=== PATIENT | male | born 1955 | race Caucasian/White ===

== ENCOUNTER → 2016-06-24 | Outpatient (CLI) | payer OTHER | LOC: RAD 11:04 | DX: M25.512 Pain in left shoulder (principal) ==

== ENCOUNTER 2018-01-30 10:18 | Emergency (ER) | payer OTHER ==
[~2018-01-30] VITALS: Ht 177.8 cm; Wt 93.0 kg
--- NOTE | ~2018-01-30 | EKG ---
[place] [address] [facility] [place] [employer] [address] ELECTROCARDIOGRAM REPORT Name: CATHERINE AMAYA Room #: [facility] Preeti#: [id number] Admission: 01/30/18 Attend Phys: Discharge: 01/30/18 Date of : 57 Report #: [id number] THIS REPORT FOR: //name// [facility] ED Test Date: 2018-01-30 Test Time: 10:28:42 Pat Name: CATHERINE AMAYA Department: Room: Gender: Qa Analyst: [facility] : 1955 Requested By: Chyna Steele Order Number: [id number] MD: Tc Figueroa Measurements Intervals [place] Rate: 60 P: 23 IL: 168 QRS: 13 QRSD: 149 T: 37 QT: 416 QTc: 416 Interpretive Statements Sinus rhythm Nonspecific st/t wave changes No previous ECG available for comparison Electronically Signed On 01-31-2018 23:26:36 CHIEF PROCUREMENT OFFICER by Tc Figueroa [email or web address] <ELECTRONICALLY SIGNED> By: Tc Figueroa MD 01/31/18 2326 [id number] 1028 Tc Figueroa MD /EPI
[2018-01-30 10:43] LABS: ABSOLUTE NEUTROPHILS 3.3 thou/uL (1.4-8.2); BASOPHILS 0.7 % (0.0-2.0); EOSINOPHILS 2.7 % (0.0-3.0); HEMATOCRIT 40.6 % (42.0-52.0); HEMOGLOBIN 13.3 gm/dL (14.0-18.0); LYMPHOCYTES 22.1 % (24.0-44.0); MCH 22.6 pg (26.0-34.0); MCHC 32.7 g/dL (28.0-37.0); MONOCYTES 7.8 % (1.0-8.0); PLATELET COUNT 153 thou/uL (150-400); POLYS 66.7 % (36.0-66.0); RBC 5.88 mil/uL (4.50-6.00); RDW 16.9 % (10.5-14.5); WBC 4.9 thou/uL (4.0-11.0)
[2018-01-30 10:51] LABS: ANION GAP 10 mmol/L (7-16); BUN 16 mg/dL (7-18); CALCIUM 9.2 mg/dL (8.5-10.1); CHLORIDE 106 mmol/L (98-107); CO2 25 mmol/L (21-32); GLUCOSE 128 mg/dL (74-106); POTASSIUM 4.1 mmol/L (3.5-5.1); SODIUM 141 mmol/L (136-145)
[2018-01-30] MEDS ORDERED: BYSTOLIC10 MG PO (10:53)
[2018-01-30] MEDS ORDERED: QUINAPRIL HCL40 MG PO (10:53)
[2018-01-30] MEDS ORDERED: FOLIC ACID1 MG PO (10:54)
[2018-01-30] MEDS ORDERED: CRESTOR10 MG PO (10:54)
[2018-01-30 10:59] LABS: ALBUMIN 4.2 g/dL (3.4-5.0); SGOT 24 U/L (15-37); SGPT 46 U/L (30-65); TOTAL BILIRUBIN 0.7 mg/dL (<0.1-1.0); TOTAL PROTEIN 7.1 g/dL (6.4-8.2); TROPONIN-I <0.06 ng/mL (<0.06)
[2018-01-30 11:21] LABS: ANISOCYTOSIS 1+; HYPOCHROMASIA 2+; MICROCYTES 2+; POLYCHROMASIA OCCASIONAL
[2018-01-30] MEDS ORDERED: PREDNISONE 20 M20 MG PO (12:58)
[2018-01-30 13:32] VITALS: BP 143/76
== END 2018-01-30 13:33 | disposition home or self-care (01) ==
LOC: ER 10:18
PROVIDERS: Student in an Organized Health Care Education/Training Program
DX: M54.12 Radiculopathy, cervical region (principal); I10 Essential (primary) hypertension; F17.210 Nicotine dependence, cigarettes, uncomplicated

== ENCOUNTER → 2019-10-27 | Outpatient (CLI) | payer OTHER ==
[~2019-10-27] MED LIST: BYSTOLIC10 MG PO; CRESTOR10 MG PO; FOLIC ACID1 MG PO; PREDNISONE 20 M20 MG PO; QUINAPRIL HCL40 MG PO
== END ==
LOC: SJCVCIMAG 06:56
PROVIDERS: ATTEND Internal Medicine Cardiovascular Disease
DX: N28.1 Cyst of kidney, acquired (principal); M79.601 Pain in right arm; I10 Essential (primary) hypertension

== ENCOUNTER → 2020-02-13 | Outpatient (CLI) | payer OTHER | LOC: SJCVCIMAG 10:49 | PROVIDERS: ATTEND Internal Medicine Cardiovascular Disease | DX: E78.5 Hyperlipidemia, unspecified (principal); I10 Essential (primary) hypertension ==